=== PATIENT | male | born 2000 | race Two or more races ===

== ENCOUNTER 2022-12-22 12:43 | Inpatient (IN) | payer OTHER ==
[~2022-12-22] VITALS: Ht 175.3 cm; Wt 54.9 kg
[2022-12-22] VITALS (8 sets, daily range): BP systolic 168–211; BP diastolic 107–122
[2022-12-22] MEDS ORDERED: ONDANSETRON HCL 4MG/2ML INJ IV STA (13:31)
[2022-12-22] MEDS ORDERED: PANTOPRAZOLE SODIUM 40 MG/VIAL IV STA (13:31)
[2022-12-22] MEDS ORDERED: SODIUM CHLORIDE 0.9% 1,000 ML IV ONE (13:45)
[2022-12-22 15:24] LABS: BASOPHILS % 2.3 % (0.0-2.0); EOSINOPHILS % 1.1 % (0.0-5.0); HEMATOCRIT. 22.5 % (42.0-52.0); HEMOGLOBIN. 7.6 g/dL (14.0-18.0); MEAN CORPUSCULAR HEMOGLOBIN 30.9 pg (28.0-32.0); MEAN CORPUSCULAR VOLUME 92.1 fL (80.0-94.0); MEAN PLATELET VOLUME 10.2 fl (7.4-10.4); MONOCYTES % 4.6 % (2.0-8.0); PLATELET 249 x1000/uL (130-400); RED BLOOD CELL COUNT 2.45 mill/uL (4.7-6.1)
[2022-12-22 15:28] LABS: CHLORIDE 97 mEq/L (98-107)
[2022-12-22 15:43] LABS: INR 1.1; PROTHROMBIN TIME 11.4 sec (9.6-11.0)
[2022-12-22 15:46] LABS: ETHANOL BLOOD < 10 mg/dL
[2022-12-22] MEDS ORDERED: FUROSEMIDE 100MG/10ML VIAL IV STA (15:57)
[2022-12-22] MEDS ORDERED: ALBUTEROL (0.083%) 2.5MG/3ML NEB HHN ONE (16:00)
[2022-12-22] MEDS ORDERED: CALCIUM CHLORIDE 1GM/10ML SYR IV ONE (16:00)
[2022-12-22] MEDS ORDERED: DEXTROSE 50% WATER 50ML SYRINGE IV ONE (16:00)
[2022-12-22] MEDS ORDERED: INSULIN REGULAR (HUMULIN R) 300UNITS/3ML VIAL IV ONE (16:00)
[2022-12-22] MEDS ORDERED: SODIUM BICARBONATE 8.4% 1 MEQ/ML 50ML SYR IV ONE (16:00)
[2022-12-22] MEDS ORDERED: SODIUM POLYSTYRENE SULFONATE 15 G/60 ML BOT PO ONE (16:00)
[2022-12-22] MEDS ORDERED: SODIUM CHLORIDE 0.9% 250 ML IV ONE (16:15)
[2022-12-22] MEDS ORDERED: MANNITOL 12.5G (25%) VIAL 50ML IV NR (17:00)
[2022-12-22 17:13] LABS: HEPATITIS B SURFACE ANTIGEN NEGATIVE
[2022-12-22] MEDS ORDERED: NALOXONE HCL 0.4MG/ML VIAL IV PRN (22:15)
[2022-12-22] MEDS: HYDROCODONE/ACETAMINOPHEN 5/325MG TABLET PO PRN (22:35)
[2022-12-22] MEDS: ONDANSETRON HCL 4MG/2ML INJ IV PRN (22:35)
[2022-12-22] MEDS: CLONIDINE 0.2MG TABLET PO PRN (22:41)
[2022-12-22 23:18] LABS: CLARITY URINE CLEAR (CLEAR); COLOR URINE YELLOW (YELLOW); KETONES URINE TRACE (NEGATIVE); LEUKOCYTE ESTERASE URINE NEGATIVE (NEGATIVE); NITRITE URINE NEGATIVE (NEGATIVE); OCCULT BLOOD URINE NEGATIVE (NEGATIVE); PH URINE 8.5 (4.5-8.0); PROTEIN URINE 4+ (NEGATIVE); SPECIFIC GRAVITY URINE 1.013 (1.005-1.030); UROBILINOGEN URINE 0.2 E.U./dL (0.2-1.0)
[2022-12-22 23:28] LABS: *AMPHETAMINES SCREEN URINE NEGATIVE (NEGATIVE); *BARBITURATES SCREEN URINE NEGATIVE (NEGATIVE); *BENZODIAZEPINES SCREEN URINE NEGATIVE (NEGATIVE); *COCAINE SCREEN URINE NEGATIVE (NEGATIVE); CANNABINOID URINE SCREEN NEGATIVE (NEGATIVE); METHADONE URINE SCREEN NEGATIVE (NEGATIVE); OPIATES URINE SCREEN NEGATIVE (NEGATIVE); PHENCYCLIDINE URINE SCREEN NEGATIVE (NEGATIVE)
[2022-12-23] VITALS (16 sets, daily range): BP systolic 152–169; BP diastolic 88–125
[2022-12-23] MEDS ORDERED: ACETAMINOPHEN 325MG TABLET PO PRN (09:30)
[2022-12-23] MEDS ORDERED: DIPHENHYDRAMINE 50MG/ML VIAL IV PRN (09:30)
[2022-12-23] MEDS ORDERED: IPRATROPIUM/ALBUTEROL 0.5-3(2.5)MG/3ML NEB HHN PRN (09:30)
[2022-12-23] MEDS ORDERED: IPRATROPIUM BROMIDE (0.02%) 0.5MG/2.5ML NEB HHN PRN (09:45)
[2022-12-23] MEDS ORDERED: ALBUTEROL (0.083%) 2.5MG/3ML NEB HHN PRN (09:45)
[2022-12-23] MEDS: ONDANSETRON HCL 4MG/2ML INJ IV PRN (11:34)
[2022-12-23 12:46] LABS: BASOPHILS % 3.2 % (0.0-2.0); EOSINOPHILS % 2.2 % (0.0-5.0); LYMPHOCYTES % 24.6 % (20.0-50.0); MEAN CORPUSCULAR HEMOGLOBIN 30.5 pg (28.0-32.0); MEAN CORPUSCULAR VOLUME 92.4 fL (80.0-94.0); MEAN PLATELET VOLUME 9.4 fl (7.4-10.4); MONOCYTES % 10.6 % (2.0-8.0); NEUTROPHILS % 59.4 % (40.0-76.0); PLATELET 193 x1000/uL (130-400); RED BLOOD CELL COUNT 1.83 mill/uL (4.7-6.1); RED CELL DISTRIBUTION WIDTH 15.6 % (11.6-14.6)
[2022-12-23 12:58] LABS: HEMATOCRIT. 16.9 % (42.0-52.0); HEMOGLOBIN. 5.6 g/dL (14.0-18.0)
[2022-12-23] MEDS ORDERED: DEXTROSE 50% WATER 50ML SYRINGE IV NR (14:45)
[2022-12-23] MEDS ORDERED: INSULIN REGULAR (HUMULIN R) 300UNITS/3ML VIAL IV NR (14:45)
[2022-12-23] MEDS ORDERED: CALCIUM GLUCONATE 1GM PREMIX 50 ML IV NR (15:30)
[2022-12-24] VITALS (26 sets, daily range): BP systolic 147–216; BP diastolic 81–122
[2022-12-24] MEDS: CLONIDINE 0.2MG TABLET PO PRN ×4 (00:57→22:10)
[2022-12-24 08:44] LABS: BASOPHILS % 2.8 % (0.0-2.0); EOSINOPHILS % 3.8 % (0.0-5.0); HEMATOCRIT. 25.2 % (42.0-52.0); HEMOGLOBIN. 8.4 g/dL (14.0-18.0); LYMPHOCYTES % 36.8 % (20.0-50.0); MEAN CORPUSCULAR HEMOGLOBIN 30.4 pg (28.0-32.0); MEAN CORPUSCULAR VOLUME 90.8 fL (80.0-94.0); MEAN PLATELET VOLUME 9.9 fl (7.4-10.4); NEUTROPHILS % 43.6 % (40.0-76.0); PLATELET 155 x1000/uL (130-400); RED BLOOD CELL COUNT 2.77 mill/uL (4.7-6.1); RED CELL DISTRIBUTION WIDTH 14.7 % (11.6-14.6)
[2022-12-25] VITALS (9 sets, daily range): BP systolic 145–231; BP diastolic 62–130
[2022-12-25] MEDS: HYDROCODONE/ACETAMINOPHEN 5/325MG TABLET PO PRN (00:16)
[2022-12-25] MEDS ORDERED: HYDRALAZINE 20MG/ML VIAL IV PRN (00:45)
[2022-12-25] MEDS ORDERED: DOXAZOSIN MESYLATE 2MG TABLET PO SCH (00:45)
[2022-12-25] MEDS ORDERED: HYDRALAZINE HCL 50MG TABLET PO SCH (06:00)
[2022-12-25 06:04] LABS: BASOPHILS % 2.8 % (0.0-2.0); EOSINOPHILS % 4.9 % (0.0-5.0); HEMATOCRIT. 25.3 % (42.0-52.0); HEMOGLOBIN. 8.8 g/dL (14.0-18.0); LYMPHOCYTES % 34.2 % (20.0-50.0); MEAN CORPUSCULAR HEMOGLOBIN 31.1 pg (28.0-32.0); MEAN CORPUSCULAR VOLUME 89.3 fL (80.0-94.0); MEAN PLATELET VOLUME 9.7 fl (7.4-10.4); MONOCYTES % 13.8 % (2.0-8.0); NEUTROPHILS % 44.3 % (40.0-76.0); PLATELET 174 x1000/uL (130-400); RED BLOOD CELL COUNT 2.83 mill/uL (4.7-6.1); RED CELL DISTRIBUTION WIDTH 14.4 % (11.6-14.6)
[2022-12-25] MEDS ORDERED: DOXA2TAB PO (09:10)
[2022-12-25] MEDS ORDERED: HYDR-4135 PO (09:10)
[2022-12-25 15:03] LABS: CHLORIDE 102 mEq/L (98-107)
== END 2022-12-25 12:10 | disposition home or self-care (01) | DRG 425 ==
LOC: ER 12:57 → MICUSO 16:24 → 5EST 12-23 05:53
PROVIDERS: ADMIT Internal Medicine; ATTEND Internal Medicine
PROC: 5A1D70Z Performance of Urinary Filtration, Intermittent, Less than 6 Hours Per Day (ICD-10-PCS; 2022-12-22)
PROC: 30233N1 Transfusion of Nonautologous Red Blood Cells into Peripheral Vein, Percutaneous Approach (ICD-10-PCS; principal; 2022-12-23)
PROC: 5A1D70Z Performance of Urinary Filtration, Intermittent, Less than 6 Hours Per Day (ICD-10-PCS; 2022-12-24)
DX: E87.5 Hyperkalemia (principal); K65.2 Spontaneous bacterial peritonitis; I12.0 Hypertensive chronic kidney disease with stage 5 chronic kidney disease or end stage renal disease; E44.1 Mild protein-calorie malnutrition; N18.6 End stage renal disease; D63.1 Anemia in chronic kidney disease; Z20.822 Contact with and (suspected) exposure to COVID-19; Z99.2 Dependence on renal dialysis; Z68.1 Body mass index [BMI] 19.9 or less, adult
CPT/HCPCS: 36415; 71045; 80048; 80053; 80305; 80320; 81003; 82962; 83605; 84132; 85025; 86038; 86705; 86709; 86803; 86850; 86900; 86920; 87340; 87426; 90935; 90945; 93005; 93970; 94640; 99291; C9113; C9803; J0360; J0610; J1200; J1815; J1940; J2150; J2405; J3490; J7030; J7050; P9016; G0480